=== PATIENT | male | born 1955 | race African-American/Black ===

== ENCOUNTER 2022-12-16 12:14 | Emergency (ER) | payer MEDICAID ==
[~2022-12-16] VITALS: Ht 175.3 cm; Wt 79.4 kg
[2022-12-16 12:29] VITALS: BP 130/93
== END 2022-12-16 22:36 | disposition left against medical advice (07) ==
LOC: ER 12:14
DX: Z53.21 Procedure and treatment not carried out due to patient leaving prior to being seen by health care provider (principal)